=== PATIENT | male | born 1995 | race Caucasian/White ===

== ENCOUNTER 2017-08-17 14:43 | Emergency (ER) | payer OTHER ==
[~2017-08-17] VITALS: Ht 188 cm; Wt 90.7 kg
[2017-08-17 14:43] VITALS: BP_SYST 144
--- NOTE | 2017-08-17 14:43 | NUR ---
Pt placed to ER bed 02. 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 Pt states the left eye was most affected. Redness to bilat eyes, swelling to Left eye with blurriness. Pt states that he irrigated eyes with NS for ~ 20 min without relief in burning. No visual deficits reported.
--- NOTE | 2017-08-17 15:00 | NUR ---
Adiel Garcia, PAC at bedside to assess pt.
--- NOTE | 2017-08-17 15:04 | NUR ---
Adiel Garcia, PAC called Poison Control at [phone] and spoke with . Per recommendations of [place]. Pt to receive eye exam for corneal abrasions and ulcers. Will continue to monitor patient.
[2017-08-17] MEDS ORDERED: FLUORESCEIN SODIUM 1 MG OPHTHALMIC STRIP OP ONE (15:15)
[2017-08-17] MEDS ORDERED: TETRACAINE HCL 0.5% OPHTHALMIC DROPS 15 ML OP ONE (15:15)
[2017-08-17] MEDS ORDERED: NS 500 ML IV ONE (15:30)
--- NOTE | 2017-08-17 15:58 | NUR ---
Attempted to irrigate eyes with NS as ordered. Pt refused. Adiel Garcia, PAC at bedside to discuss POC.
--- NOTE | 2017-08-17 16:20 | NUR ---
Pt agreed to POC. Bilat eyes irrigated via [place] with 250 NS per eye. Pt states that he feels much better afterwards.
[2017-08-17 17:02] VITALS: BP_SYST 132
--- NOTE | 2017-08-17 17:02 | NUR ---
Patient given written and verbal discharge instructions and verbalizes understanding. ER MD discussed with patient the results and treatment provided. Patient in stable condition. ID arm band removed. Rx of Gentak and Motrin given. Patient educated on pain management and to follow up with PMD. Pain Scale 1/10. Opportunity for questions provided and answered.
== END 2017-08-17 17:02 | disposition home or self-care (01) ==
LOC: SED 14:43
DX: T65.891A Toxic effect of other specified substances, accidental (unintentional), initial encounter (principal); H10.213 Acute toxic conjunctivitis, bilateral; Y92.89 Other specified places as the place of occurrence of the external cause
CPT/HCPCS: 99283; J7050